=== PATIENT | male | born 1970 | race Caucasian/White ===

== ENCOUNTER → 2018-08-05 | Outpatient (CLI) | payer MEDICAID ==
--- NOTE | 2018-08-05 13:19 | Diagnostic Imaging Report ---
PROCEDURE: MRI right joint upper extremity without contrast. TECHNIQUE: Multiplanar, multisequence [id number] MRI of the right upper extremity was accomplished. INDICATION: Shoulder pain. COMPARISON: There are no prior studies available for comparison. FINDINGS: On the T2 fat-saturated coronal series, there appears to be only a few strands of the supraspinatus muscle still present. I do suspect that the supraspinatus muscle has been nearly completely if not completely torn and that it has been retracted. There is hypertrophy of the acromioclavicular joint, and there is some fluid within the AC joint. This does suggest that there is inflammation of the joint. There is a tear involving the central portion of the labrum. The biceps tendon and subscapularis tendon are intact. There is no evidence for a joint effusion. There is no abnormal signal arising from the osseous structures to suggest bone edema or a fracture. IMPRESSION: 1. The poor visualization of the supraspinatus muscle would indicate that the supraspinatus muscle is nearly completely if not completely torn and that it has been retracted. 2. There is hypertrophy of the acromioclavicular joint, and the presence of fluid within the joint does suggest that there is inflammation. 3. The labrum is torn centrally. 4. There is no acute bony abnormality identified. Dictated by: Dictated on workstation # [id number]
== END ==
LOC: RAD 11:53
PROVIDERS: ATTEND Nurse Practitioner
DX: S43.491A Other sprain of right shoulder joint, initial encounter (principal); M75.111 Incomplete rotator cuff tear or rupture of right shoulder, not specified as traumatic
CPT/HCPCS: 73221

== ENCOUNTER 2018-08-26 09:29 | Outpatient (CLI) | payer MEDICAID ==
[~2018-08-26] VITALS: Ht 177.8 cm; Wt 111.1 kg
[2018-08-26] MEDS ORDERED: MELO15TA39 PO (11:42)
[2018-08-26] MEDS ORDERED: OXYC-464 PO (11:42)
[2018-08-26] MEDS ORDERED: BACL20TA PO (11:42)
== END 2018-08-26 12:00 | disposition home or self-care (01) ==
LOC: PREOP 09:29
PROVIDERS: ATTEND Orthopaedic Surgery
DX: Z01.818 Encounter for other preprocedural examination (principal)

== ENCOUNTER 2018-09-01 09:29 | Day surgery (SDC) | payer MEDICAID ==
[~2018-09-01] VITALS: Ht 177.8 cm; Wt 111.1 kg
[~2018-09-01 09:29] MED LIST: BACL20TA PO; MELO15TA39 PO; OXYC-464 PO
[2018-09-01] MEDS: LACTATED RINGERS 1,000 ML IV PRN ×2 (10:05→11:47)
--- NOTE | 2018-09-01 10:13 | Progress Note-Pre Operative ---
Pre-Operative Progress Note H&P Reviewed The H&P was reviewed, patient examined and no changes noted. Date Seen by Provider: Sep 01, 2018 Time Seen by Provider: : Date H&P Reviewed: Sep 01, 2018 Time H&P Reviewed: :13 Pre-Operative Diagnosis: right rotator cuff and SLAP tear SIVAN JOSEPH MD Sep 01, 2018 10:13
[2018-09-01] MEDS ORDERED: CATHETER FLUSH 10 ML SYR IV PRN (10:15)
[2018-09-01] MEDS ORDERED: ROCURONIUM 10 MG/ML 5 ML SYRINGE IV ONE (10:15)
[2018-09-01] MEDS ORDERED: LIDOCAINE PF 2% 5 ML (XYLOCAINE) VIAL ONE (10:15)
[2018-09-01] MEDS ORDERED: ONDANSETRON 4 MG/2 ML (SDV) Z0FRAN ONE (10:15)
[2018-09-01] MEDS ORDERED: DEXAMETHASONE 10 MG/ML (DECADRON) 1 ML VIAL ONE (10:15)
[2018-09-01] MEDS ORDERED: SEVOFLURANE (ULTANE) 15 ML INHAL SOLN ONE ×2 (10:15→12:25)
[2018-09-01] MEDS ORDERED: proPOfol 200 MG/20 ML (DIPRIVAN) VIAL IV ONE (10:15)
[2018-09-01] MEDS ORDERED: CLINDAMYCIN 600 MG/50 ML IVPB 50 ML IV ONE (10:15)
--- NOTE | 2018-09-01 10:15 | Progress Note-Post Operative ---
Post-Operative Progess Note Surgeon (s)/Workers' Compensation Mediator (s) Surgeon SIVAN JOSEPH MD Workers' Compensation Mediator: Jeanmarie Abbasi Pre-Operative Diagnosis right rotator cuff and SLAP tear Post-Operative Diagnosis right rotator cuff, labral and SLAP tears Procedure & Operative Findings Date of Procedure 09/01/18 Procedure Performed/Findings right shoulder arthroscopic biceps tenotomy, labral debridement and acromioplasty Anesthesia Type GETA Estimated Blood Loss Estimated blood loss (mL): minimal Specimens/Packing Specimens Removed none Packing: none SIVAN JOSEPH MD Sep 01, 2018 10:15
[2018-09-01] MEDS ORDERED: MIDAZOLAM 2 MG/2 ML (VERSED) VIAL ONE (10:17)
[2018-09-01] MEDS ORDERED: fentaNYL INJECTION 100 MCG/2 ML AMP ONE ×2 (10:17→11:36)
[2018-09-01] MEDS ORDERED: BUPIVACAINE 0.25% 30 ML (SENSORCAINE) VIAL ONE (10:24)
[2018-09-01] MEDS ORDERED: morphine PF (DURAMORPH) 10 MG/10 ML AMP ONE (10:24)
[2018-09-01 10:25] VITALS: BP 126/86
[2018-09-01] MEDS ORDERED: oxyCODONE/APAP 5/325MG (PERCOCET 5) TABLET PO PRN (10:30)
[2018-09-01] MEDS ORDERED: RT-ALBUTEROL SULF 2.5 MG/3 ML PRE-MIX VIAL ONE (10:35)
[2018-09-01] MEDS ORDERED: RT-ALBUTEROL SULF 2.5 MG/3 ML PRE-MIX VIAL INH ONE (10:45)
[2018-09-01] MEDS ORDERED: ROPIVACAINE 5MG/ML 30ML VIAL ONE ×2 (11:03)
[2018-09-01] MEDS ORDERED: NEOSTIGMINE 1 MG/ML 5 ML SYRINGE ONE (11:45)
[2018-09-01] MEDS ORDERED: GLYCOPYRROLATE 0.2 MG/ML (ROBINUL) 2 ML VIAL ONE (11:45)
[2018-09-01] MEDS ORDERED: RT-ALBUTEROL HFA (VENTOLIN) PER PUFF IH ONE (11:55)
--- OUTSIDE RECORDS SUMMARY | 2018-09-01 11:56 | XMS REPORT ---
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 Active 149965718463 Problem Other chronic pain G89.29 Active 22371013 Problem Lumbago with sciatica, right side M54.41 Active 047783447 ALLERGIES No Information ENCOUNTERS Encounter Location Date Diagnosis [place] [address] [address] Jun, [facility] [address] [address] Jun, [facility] [address] [address] Jun, Lumbago with sciatica, right side M54.41 [place] [address] [address] Jun, [place] [address] [address] Jun, History of spinal cord injury Z87.828 ; History of degenerative disc disease Z87.39 and Lumbago with sciatica, right side M54.41 [facility] [address] [address] May, [place] [address] [address] May, [facility] [address] [address] May, Lumbago with sciatica, right side M54.41 ; Annual physical exam Z00.00 ; Right leg weakness R29.898 ; History of degenerative disc disease Z87.39 ; Dental caries K02.9 ; Encounter for immunization Z23 ; Non-allergic rhinitis J31.0 ; Other chronic pain G89.29 and History of spinal cord injury Z87.828 [place] [address], [place] [address] 07 May, 2018 Pain in right shoulder M25.511 ; Pain in left shoulder M25.512 ; Other chronic pain G89.29 and Lumbago with sciatica, right side M54.41 [place] [address] [place] [id number] [place] [address] May, [place] [address] [place] [id number] [place] [address] 12 Dec, 2017 Lumbago with sciatica, right side M54.41 and Other chronic pain G89.29 IMMUNIZATIONS No Known Immunizations SOCIAL HISTORY Never Assessed REASON FOR VISIT new orders PLAN OF CARE VITAL SIGNS MEDICATIONS Medication Instructions Dosage Frequency Start Date End Date Duration Status Percocet 7.5-325 MG Orally every 6 hrs 1 tablet as needed 6h Jun, 28 days Active RESULTS No Results PROCEDURES No Known procedures INSTRUCTIONS MEDICATIONS ADMINISTERED No Known Medications MEDICAL (GENERAL) HISTORY Type Description Date Medical History back pain, d/t 30 ft fall in 1999 Medical History shoulder pain both Surgical History lumbar fusion 10/1999 Surgical History orthopedic surgery, right elbow and left foot 10/1999
--- OUTSIDE RECORDS SUMMARY | 2018-09-01 11:56 | XMS REPORT ---
Author Author SIVAN RANDALL Organization [facility] Address [address] [place] [address] Care Team Providers Care Foreign Banknote Teller Trader Name Role Phone SIVAN RANDALL Unavailable PROBLEMS Type Condition ICD9-CM Code YAT77-BL Code Onset Dates Condition Status SNOMED Code Problem Non-allergic rhinitis J31.0 Active 272436807130 Problem Other chronic pain G89.29 Active 51522647 Problem Lumbago with sciatica, right side M54.41 Active 813381266 ALLERGIES No Information ENCOUNTERS Encounter Location Date Diagnosis [place] [address] [address] Jun, [facility] [address] [address] Jun, [facility] [address] [address] Jun, Lumbago with sciatica, right side M54.41 [place] [address] [address] Jun, [place] [address] [address] Jun, History of spinal cord injury Z87.828 ; History of degenerative disc disease Z87.39 and Lumbago with sciatica, right side M54.41 [facility] [address] [address] May, [place] [address] [address] May, [facility] [address] [address] May, Lumbago with sciatica, right side M54.41 ; Annual physical exam Z00.00 ; Right leg weakness R29.898 ; History of degenerative disc disease Z87.39 ; Dental caries K02.9 ; Encounter for immunization Z23 ; Non-allergic rhinitis J31.0 ; Other chronic pain G89.29 and History of spinal cord injury Z87.828 [facility] [address], [place] [address] 07 May, 2018 Pain in right shoulder M25.511 ; Pain in left shoulder M25.512 ; Other chronic pain G89.29 and Lumbago with sciatica, right side M54.41 [place] [address] [place] [id number] [place] [address] May, [place] [address] [place] [address] 12 Dec, 2017 Lumbago with sciatica, right side M54.41 and Other chronic pain G89.29 IMMUNIZATIONS No Known Immunizations SOCIAL HISTORY Never Assessed REASON FOR VISIT Controlled refill PLAN OF CARE VITAL SIGNS MEDICATIONS Unknown Medications RESULTS No Results PROCEDURES No Known procedures INSTRUCTIONS MEDICATIONS ADMINISTERED No Known Medications MEDICAL (GENERAL) HISTORY Type Description Date Medical History back pain, d/t 30 ft fall in 1999 Medical History shoulder pain both Surgical History lumbar fusion 10/1999 Surgical History orthopedic surgery, right elbow and left foot 10/1999
--- OUTSIDE RECORDS SUMMARY | 2018-09-01 11:56 | XMS REPORT ---
Author Author SIVAN RANDALL Organization [facility] Address [address] [place] [address] Care Team Providers Care Data Base Design Analyst Name Role Phone SIVAN RANDALL Unavailable PROBLEMS Type Condition ICD9-CM Code EQI77-ZC Code Onset Dates Condition Status SNOMED Code Problem Non-allergic rhinitis J31.0 Active 687575378099 Problem Other chronic pain G89.29 Active 02381321 Problem Lumbago with sciatica, right side M54.41 Active 598992065 ALLERGIES No Information ENCOUNTERS Encounter Location Date Diagnosis [facility] [address] [address] 04 Jun, 2018 History of spinal cord injury Z87.828 ; History of degenerative disc disease Z87.39 and Lumbago with sciatica, right side M54.41 [facility] [address] [address] May, [facility] [address] [address] May, [facility] [address] [place] [id number] [place] [address] 27 May, 2018 Lumbago with sciatica, right side M54.41 ; Annual physical exam Z00.00 ; Right leg weakness R29.898 ; History of degenerative disc disease Z87.39 ; Dental caries K02.9 ; Encounter for immunization Z23 ; Non-allergic rhinitis J31.0 ; Other chronic pain G89.29 and History of spinal cord injury Z87.828 [facility] [address] [place] [id number] [place] [address] 07 May, 2018 Pain in right shoulder M25.511 ; Pain in left shoulder M25.512 ; Other chronic pain G89.29 and Lumbago with sciatica, right side M54.41 [facility] [address] [facility] [id number] [place] [address] May, [facility] [address] [facility] [id number] [place] [address] Dec, Lumbago with sciatica, right side M54.41 and Other chronic pain G89.29 IMMUNIZATIONS No Known Immunizations SOCIAL HISTORY Never Assessed REASON FOR VISIT Prior Authorization Request PLAN OF CARE VITAL SIGNS MEDICATIONS Unknown [...]
--- OUTSIDE RECORDS SUMMARY | 2018-09-01 11:56 | XMS REPORT ---
Author Author SIVAN RANDALL Organization [facility] Address [address] [place] [address] Care Team Providers Care Security Installation Technician Name Role Phone SIVAN RANDALL Unavailable PROBLEMS Type Condition ICD9-CM Code ETE90-IW Code Onset Dates Condition Status SNOMED Code Problem Non-allergic rhinitis J31.0 Active 708836229130 Problem Other chronic pain G89.29 Active 84476987 Problem Lumbago with sciatica, right side M54.41 Active 480015487 ALLERGIES No Information ENCOUNTERS Encounter Location Date Diagnosis [place] [address] [address] Jun, [facility] [address] [address] Jun, [facility] [address] [address] Jun, Lumbago with sciatica, right side M54.41 ; Pain in right shoulder M25.511 ; History of spinal cord injury Z87.828 ; Pain in left shoulder M25.512 ; Annual physical exam Z00.00 ; Other chronic pain G89.29 ; Right leg weakness R29.898 ; History of degenerative disc disease Z87.39 and Dental caries K02.9 [facility] [address] [place] [id number] [place] [address] Jun, [facility] [address] [address] Jun, Lumbago with sciatica, right side M54.41 [facility] [address] [place] [id number] [place] [address]- [address] Jun, [facility] [address] [place] [address] Jun, History of spinal cord injury Z87.828 ; History of degenerative disc disease Z87.39 and Lumbago with sciatica, right side M54.41 [place] [address] [place] [address] May, [place] [address] [place] [id number] [place] [address]- [address] May, [place] [address] [place] [id number] [place] [address] May, Lumbago with sciatica, right side M54.41 ; Annual physical exam Z00.00 ; Right leg weakness R29.898 ; History of degenerative disc disease Z87.39 ; Dental caries K02.9 ; Encounter for immunization Z23 ; Non-allergic rhinitis J31.0 ; Other chronic pain G89.29 and History of spinal cord injury Z87.828 [place] [address] [place] [id number] [place] [address] May, Pain in right shoulder M25.511 ; Pain in left shoulder M25.512 ; Other chronic pain G89.29 and Lumbago with sciatica, right side M54.41 [place] [address] [place] [address] May, [place] [address] [place] [address]- [address] Dec, Lumbago with sciatica, right side M54.41 and Other chronic pain G89.29 IMMUNIZATIONS No Known Immunizations SOCIAL HISTORY Never Assessed REASON FOR VISIT Refill request PLAN OF CARE VITAL SIGNS MEDICATIONS Unknown [...]
--- OUTSIDE RECORDS SUMMARY | 2018-09-01 11:56 | XMS REPORT ---
Author Author SIVAN RANDALL Organization [facility] Address [address] [place] [address] Care Team Providers Care Metal Annealer Name Role Phone SIVAN RANADLL Unavailable PROBLEMS Type Condition ICD9-CM Code CTG11-GU Code Onset Dates Condition Status SNOMED Code Problem Non-allergic rhinitis J31.0 Active 395797231755 Problem Other chronic pain G89.29 Active 14846372 Problem Lumbago with sciatica, right side M54.41 Active 551706270 ALLERGIES No Information ENCOUNTERS Encounter Location Date Diagnosis [place] [address] [address] Jun, [place] [address] [address] Jun, Lumbago with sciatica, right side M54.41 ; Pain in right shoulder M25.511 ; History of spinal cord injury Z87.828 ; Pain in left shoulder M25.512 ; Annual physical exam Z00.00 ; Other chronic pain G89.29 ; Right leg weakness R29.898 ; History of degenerative disc disease Z87.39 and Dental caries K02.9 [place] [address] [place] [id number] [place] [address] Jun, [place] [address] [place] [id number] [place] [address]- [address] Jun, Lumbago with sciatica, right side M54.41 [place] [address] [place] [id number] [place] [address] Jun, [place] [address] [place] [id number] [place] [address]- [address] Jun, History of spinal cord injury Z87.828 ; History of degenerative disc disease Z87.39 and Lumbago with sciatica, right side M54.41 [place] [address], [place] [address] May, [place] [address] [place] [id number] [place] [address]- [address] May, [place] [address] [place] [id number] [place] [address]- [address] May, Lumbago with sciatica, right side M54.41 ; Annual physical exam Z00.00 ; Right leg weakness R29.898 ; History of degenerative disc disease Z87.39 ; Dental caries K02.9 ; Encounter for immunization Z23 ; Non-allergic rhinitis J31.0 ; Other chronic pain G89.29 and History of spinal cord injury Z87.828 [place] [address] [place] [id number] [place] [address] 07 May, 2018 Pain in right shoulder M25.511 ; Pain in left shoulder M25.512 ; Other chronic pain G89.29 and Lumbago with sciatica, right side M54.41 [place] [address] [place] [address]- [address] May, [place] [address] [place] [address]- [address] Dec, Lumbago with sciatica, right side M54.41 and Other chronic pain G89.29 IMMUNIZATIONS No Known Immunizations SOCIAL HISTORY Never Assessed REASON FOR VISIT Xray (walk-in) MHill RT(R) and ABookless RT(R) PLAN OF CARE Activity Details Pending Test Xray : Shoulder, Left 2 view (IN HOUSE) Pending Test Xray : Shoulder, Right 2 view (IN HOUSE) Pending Test Xray : Spine, Thoracic 2 views (IN HOUSE) Pending Test Xray : Spine, Lumbar 2-3 views (IN HOUSE) Pending Test Xray : Spine, Cervical (IN HOUSE) VITAL SIGNS MEDICATIONS Unknown Medications RESULTS No Results PROCEDURES Procedure Date Ordered Result Body Site X-RAY EXAM OF SHOULDER Jul 06, 2018 X-RAY EXAM OF NECK SPINE Jul 06, 2018 X-RAY EXAM OF LOWER SPINE Jul 06, 2018 X-RAY EXAM OF THORACIC SPINE Jul 06, 2018 INSTRUCTIONS MEDICATIONS ADMINISTERED No Known Medications MEDICAL (GENERAL) HISTORY Type Description Date Medical History back pain, d/t 30 ft fall in 1999 Medical History shoulder pain both Surgical History lumbar fusion 10/1999 Surgical History orthopedic surgery, right elbow and left foot 10/1999
--- OUTSIDE RECORDS SUMMARY | 2018-09-01 11:57 | XMS REPORT ---
Author Author SIVAN RANDALL Organization [facility] Address [address] [place] [address] Care Team Providers Care Documentation Liaison Name Role Phone ISVAN RANDALL Unavailable PROBLEMS Type Condition ICD9-CM Code AIQ46-NU Code Onset Dates Condition Status SNOMED Code Problem Other chronic pain G89.29 Active 48454927 Problem Lumbago with sciatica, right side M54.41 Active 134839307 ALLERGIES Substance Reaction Event Type Date Status Penicillin G Sodium unknown Drug Allergy Dec, Active Codeine Sulfate aggitation Drug Allergy Dec, Active ENCOUNTERS Encounter Location Date Diagnosis [facility] [address] [facility] [id number] [address] Dec, Lumbago with sciatica, right side M54.41 and Other chronic pain G89.29 IMMUNIZATIONS No Known Immunizations SOCIAL HISTORY Never Assessed REASON FOR VISIT Establish Care, recently moved from [place], no PCP-----Joaquin, requesting SSI PLAN OF CARE Activity Details Follow Up prn Reason:medical records VITAL SIGNS Height 70 in 2017-12-29 Weight 225 lbs 2017-12-29 Temperature 98.1 degrees Fahrenheit 2017-12-29 Heart Rate 90 bpm 2017-12-29 Respiratory Rate 20 2017-12-29 BMI 32.28 kg/m2 2017-12-29 Blood pressure systolic 132 mmHg 2017-12-29 Blood pressure diastolic 70 mmHg 2017-12-29 MEDICATIONS Medication Instructions Dosage Frequency Start Date End Date Duration Status Diclofenac Sodium 75 MG Orally Twice a day 1 tablet with food or milk 12h 14 days Active Cyclobenzaprine HCl 10 mg Orally bid prn muscle spasm 1 tablet as needed Dec, Jan, 28 days Active RESULTS No Results PROCEDURES No Known procedures INSTRUCTIONS MEDICATIONS ADMINISTERED No Known Medications MEDICAL (GENERAL) HISTORY Type Description Date Medical History back pain, d/t 30 ft fall in 1999 Surgical History lumbar fusion 10/1999 Surgical History orthopedic surgery, right elbow and left foot 10/1999
--- OUTSIDE RECORDS SUMMARY | 2018-09-01 11:57 | XMS REPORT ---
Author Author SIVAN RANDALL Organization [facility] Address [address] [place] [address] Care Team Providers Care Publications Distribution Clerk Name Role Phone SIVAN RANDALL Unavailable PROBLEMS Type Condition ICD9-CM Code JZA54-RS Code Onset Dates Condition Status SNOMED Code Problem Non-allergic rhinitis J31.0 Active 963696481796 Problem Other chronic pain G89.29 Active 44979576 Problem Lumbago with sciatica, right side M54.41 Active 321875956 ALLERGIES No Information ENCOUNTERS Encounter Location Date Diagnosis [facility] [address] [address] 04 Jun, 2018 History of spinal cord injury Z87.828 ; History of degenerative disc disease Z87.39 and Lumbago with sciatica, right side M54.41 [facility] [address] [address] May, [facility] [address] [address] May, [facility] [address] [place] [id number] [place] [address] 27 May, 2018 Lumbago with sciatica, right side M54.41 ; Annual physical exam Z00.00 ; Right leg weakness R29.898 ; History of degenerative disc disease Z87.39 ; Dental caries K02.9 ; Encounter for immunization Z23 ; Non-allergic rhinitis J31.0 ; Other chronic pain G89.29 and History of spinal cord injury Z87.828 [facility] [address] [place] [id number] [place] [address] 07 May, 2018 Pain in right shoulder M25.511 ; Pain in left shoulder M25.512 ; Other chronic pain G89.29 and Lumbago with sciatica, right side M54.41 [facility] [address] [facility] [id number] [place] [address] May, [facility] [address] [facility] [id number] [place] [address] Dec, Lumbago with sciatica, right side M54.41 and Other chronic pain G89.29 IMMUNIZATIONS No Known Immunizations SOCIAL HISTORY Never Assessed REASON FOR VISIT Requests return call PLAN OF CARE VITAL SIGNS MEDICATIONS Unknown [...]
--- OUTSIDE RECORDS SUMMARY | 2018-09-01 11:57 | XMS REPORT ---
Author Author SIVAN RANDALL Organization [facility] Address [address] [place] [address] Care Team Providers Care Meat Team Lead Name Role Phone SIVAN RANDALL Unavailable PROBLEMS Type Condition ICD9-CM Code XMM99-AL Code Onset Dates Condition Status SNOMED Code Problem Non-allergic rhinitis J31.0 Active 134173360280 Problem Other chronic pain G89.29 Active 26991931 Problem Lumbago with sciatica, right side M54.41 Active 007076064 ALLERGIES No Information ENCOUNTERS Encounter Location Date Diagnosis [facility] [address] [address] 04 Jun, 2018 History of spinal cord injury Z87.828 ; History of degenerative disc disease Z87.39 and Lumbago with sciatica, right side M54.41 [facility] [address] [address] May, [facility] [address] [address] May, [facility] [address] [place] [id number] [place] [address] 27 May, 2018 Lumbago with sciatica, right side M54.41 ; Annual physical exam Z00.00 ; Right leg weakness R29.898 ; History of degenerative disc disease Z87.39 ; Dental caries K02.9 ; Encounter for immunization Z23 ; Non-allergic rhinitis J31.0 ; Other chronic pain G89.29 and History of spinal cord injury Z87.828 [facility] [address] [place] [id number] [place] [address] 07 May, 2018 Pain in right shoulder M25.511 ; Pain in left shoulder M25.512 ; Other chronic pain G89.29 and Lumbago with sciatica, right side M54.41 [facility] [address] [facility] [id number] [place] [address] May, [facility] [address] [facility] [id number] [place] [address] Dec, Lumbago with sciatica, right side M54.41 and Other chronic pain G89.29 IMMUNIZATIONS No Known Immunizations SOCIAL HISTORY Never Assessed REASON FOR VISIT new x-ray orders PLAN OF CARE VITAL SIGNS MEDICATIONS Unknown [...]
--- OUTSIDE RECORDS SUMMARY | 2018-09-01 11:57 | XMS REPORT ---
Author Author SIVAN RANDALL Organization [facility] Address [address] [place] [address] Care Team Providers Care Airport Skilled Maintenance Supervisor Name Role Phone SIVAN RANDALL Unavailable PROBLEMS Type Condition ICD9-CM Code PEM24-LQ Code Onset Dates Condition Status SNOMED Code Problem Other chronic pain G89.29 Active 57569175 Problem Lumbago with sciatica, right side M54.41 Active 060797806 ALLERGIES No Information ENCOUNTERS Encounter Location Date Diagnosis [facility] [address], [place] [address] May, [facility] [address], [place] [address] May, [facility] [address], [place] [address] Dec, Lumbago with sciatica, right side M54.41 [...]
--- OUTSIDE RECORDS SUMMARY | 2018-09-01 11:57 | XMS REPORT ---
Author Author SIVAN RANDALL Organization [facility] Address [address] [place] [address] Care Team Providers Care Firearms Expert Name Role Phone SIVAN RANDALL Unavailable PROBLEMS Type Condition ICD9-CM Code [id number] Code Onset Dates Condition Status SNOMED Code Problem Other chronic pain G89.29 Active 07673001 Problem Lumbago with sciatica, right side M54.41 Active 939425840 ALLERGIES Substance Reaction Event Type Date Status Penicillin G Sodium unknown Drug Allergy May, Active Codeine Sulfate aggitation Drug Allergy May, Active ENCOUNTERS Encounter Location Date Diagnosis [facility] [id number] [place] [address] May, [facility] [id number] [place] [address] May, Pain in right shoulder M25.511 ; Pain in left shoulder M25.512 ; Other chronic pain G89.29 and Lumbago with sciatica, right side M54.41 [facility] [id number] [place] [phone] May, [facility] [id number] [place] [phone] Dec, Lumbago with sciatica, right side M54.41 and Other chronic pain G89.29 IMMUNIZATIONS No Known Immunizations SOCIAL HISTORY Never Assessed REASON FOR VISIT pain, shoulder-GENNA loydA, pt complaining of pain in both of his shoulders, pt states that he fallin a couple of times since he was here last PLAN OF CARE Activity Details Follow Up prn Reason: Future/Pending Procedure JOINT INJECTION-LARGE JOINT VITAL SIGNS Height 70 in 2018-05-26 Weight 239.3 lbs 2018-05-26 Temperature 97.9 degrees Fahrenheit 2018-05-26 Heart Rate 94 bpm 2018-05-26 Respiratory Rate 20 2018-05-26 Oximetry on room air:96 % 2018-05-26 BMI 34.33 kg/m2 2018-05-26 Blood pressure systolic 146 mmHg 2018-05-26 Blood pressure diastolic 90 mmHg 2018-05-26 MEDICATIONS Medication Instructions Dosage Frequency Start Date End Date Duration Status Baclofen 20 mg Orally every 8 hrs, prn muscle spasm 1 tablet with food or milk May, Aug, 30 day(s) Active Meloxicam 15 mg Orally Once a day 1 tablet 24h May, Aug, 30 day(s) Active RESULTS No Results PROCEDURES Procedure Date Ordered Result Body Site DRAIN/INJECT, JOINT/BURSA May 26, 2018 INSTRUCTIONS MEDICATIONS ADMINISTERED No Known Medications MEDICAL (GENERAL) HISTORY Type Description Date Medical History back pain, d/t 30 ft fall in 1999 Medical History shoulder pain both Surgical History lumbar fusion 10/1999 Surgical History orthopedic surgery, right elbow and left foot 10/1999
--- OUTSIDE RECORDS SUMMARY | 2018-09-01 11:57 | XMS REPORT ---
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 224627174432 Problem Other chronic pain G89.29 Active 16928001 Problem Lumbago with sciatica, right side M54.41 Active 327533396 ALLERGIES Substance Reaction Event Type Date Status Penicillin G Sodium unknown Drug Allergy May, Active Codeine Sulfate aggitation Drug Allergy May, Active ENCOUNTERS Encounter Location Date Diagnosis [facility] [id number] [place] [phone] May, [facility] [address] [address] May, [facility] [address] [address] May, Lumbago with sciatica, right side M54.41 ; Annual physical exam Z00.00 ; Right leg weakness R29.898 ; History of degenerative disc disease Z87.39 ; Dental caries K02.9 ; Encounter for immunization Z23 ; Non-allergic rhinitis J31.0 ; Other chronic pain G89.29 and History of spinal cord injury Z87.828 [facility] [address] [phone] May, 2018 Pain in right shoulder M25.511 ; Pain in left shoulder M25.512 ; Other chronic pain G89.29 and Lumbago with sciatica, right side M54.41 [facility] [address] [address] May, [facility] [address] [facility] [id number] [place] [address] Dec, Lumbago with sciatica, right side M54.41 and Other chronic pain G89.29 IMMUNIZATIONS Vaccine Route Administration Date Status FLULAVAL QUAD 0.5ML (6 MO & UP) 2018 IM Intramuscular Jun 15, 2018 Administered PPSV23 (PNEUMOVAX) IM Intramuscular Jun 15, 2018 Administered SOCIAL HISTORY Never Assessed REASON FOR VISIT Annual physical (male), physical for disability. 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 PLAN OF CARE Activity Details Follow Up 6 Months Reason: Pending Test LIPID PANEL Pending Test CMP Pending Test CBC Pending Test PDM - 09 PANEL (PROFILE 1) Pending Test MRI : Lumbar w/o contrast VITAL SIGNS MEDICATIONS Medication Instructions Dosage Frequency Start Date End Date Duration Status Ipratropium Bosworth 0.06 % Nasally Three times a day 2 sprays in each nostril 8h May, 30 days Active Percocet 7.5-325 MG Orally every 6 hrs 1 tablet as needed 6h May, 28 days Active Meloxicam 15 mg Orally Once a day 1 tablet 24h May, Aug, 30 day(s) Active Baclofen 20 mg Orally every 8 hrs, prn muscle spasm 1 tablet with food or milk May, Aug, 30 day(s) Active RESULTS No Results PROCEDURES Procedure Date Ordered Result Body Site SPECIMEN HANDLING Jun 15, 2018 SINGLE IMMUNIZATION ADMIN Jun 15, 2018 FLULAVAL QUAD 0.5ML (6 MO & UP) 2018 Jun 15, 2018 IMMUNIZATION ADMIN, EACH ADD (please include units) Jun 15, 2018 LAB NOT BILLED BY [facility] Jun 15, 2018 VENIPUNCT, ROUTINE* Jun 15, 2018 ADMN PNEUMCOC VAC NO FEE DAY Jun 15, 2018 PPSV23 (PNEUMOVAX) Jun 15, 2018 INSTRUCTIONS MEDICATIONS ADMINISTERED No Known Medications MEDICAL (GENERAL) HISTORY Type Description Date Medical History back pain, d/t 30 ft fall in 1999 Medical History shoulder pain both Surgical History lumbar fusion 10/1999 Surgical History orthopedic surgery, right elbow and left foot 10/1999
[2018-09-01] MEDS ORDERED: ONDANSETRON 4 MG/2 ML (SDV) Z0FRAN IVP PRN (12:15)
[2018-09-01] MEDS ORDERED: morphine INJ 10 MG/ML 1ML (SYR OR VIAL) IVP ONE (12:15)
[2018-09-01 12:50] VITALS: BP 148/97
[2018-09-01 13:20] VITALS: BP 142/85
[2018-09-01 13:50] VITALS: BP 131/74
--- NOTE | 2018-09-01 14:07 | OPERATIVE REPORT ---
DATE OF SERVICE: 09/01/2018 PREOPERATIVE DIAGNOSIS: 1. Right shoulder rotator cuff tear. 2. Right shoulder SLAP tear. POSTOPERATIVE DIAGNOSES: 1. Irreparable right shoulder rotator cuff tear. 2. Right shoulder SLAP tear. 3. Right shoulder labral tear. PROCEDURES: 1. Right shoulder arthroscopic biceps tenotomy. 2. Right shoulder arthroscopic labral debridement. 3. Right shoulder arthroscopic acromioplasty. SURGEON: Benedicto Joseph MD. [place] ATTENDANT: Jeanmarie Abbasi, who assisted throughout the procedure and closed the incisions. ANESTHESIA: General endotracheal by Leann Morton CRNA. ESTIMATED BLOOD LOSS: Minimal. DRAINS: None. COMPLICATIONS: None. POSTOPERATIVE PLAN: Sling wear for comfort with progressive range of motion as symptoms allow. The patient was transferred to the recovery room awake and in stable condition. STATEMENT OF MEDICAL NECESSITY: The patient is a 47-year-old right hand dominant gentleman with progressively worsening of the right shoulder pain and weakness. An MRI revealed a retracted full thickness 3-tendon rotator cuff tear with atrophy of the muscle noted. The patient was counseled that this may be an irreparable tear. In addition, he was found to have a SLAP tear on MRI. Due to functional impairment and failure to improve with the conservative measures, the patient elected to proceed with surgical intervention. Examination under anesthesia revealed forward elevation of 170 degrees, external rotation of 90 degrees and internal rotation of 80 degrees. The arthroscopic findings demonstrated a retracted supraspinatus, infraspinatus and subscapularis tear with retraction to the glenoid with atrophy noted. There was a type 2 SLAP tear with degenerative fraying in the anterior labrum from the 2 to 4 o'clock position with no detachment of the capsular labral complex. Otherwise, there was moderate bursitis and sloping of the anterolateral acromion. DESCRIPTION OF PROCEDURE: After the risks and benefits of the procedure were discussed and questions were answered, informed consent was signed and placed on the chart. The operative site was confirmed and the operative limb initialed by the surgeon. The patient was then transferred to the operating room. After adequate levels of general endotracheal anesthetic were obtained, a timeout was called confirming the operative site. Examination under anesthesia was performed with the above findings noted. The right shoulder and upper extremity were prepped and draped in the usual sterile fashion. The shoulder joint was injected with a 20 mL fluid and a standard posterior portal was placed under direct visualization. The anterior portal was created in the interval between the glenoid, humeral head and biceps. The biceps anchor was released and the stump was debrided with a shaver. The anterior labral flap was debrided with shaver back to a stable edge. The scope was redirected into the subacromial space and a lateral portal was created. A bursectomy was performed and the acromion was planed to a flat type 1 acromion. Attempts at mobilizing the rotator cuff were unsuccessful. This was due to the atrophy of the tendon and muscle unit. Therefore, it was decided that this was an irreparable tear. Subacromial space was copiously irrigated. The portal sites were closed with 4-0 nylon in a simple interrupted fashion. Shoulder was injected with Duramorph. The portal sites were infiltrated with plain Marcaine. A soft dressing and sling were applied. The patient was transported to the recovery room awake and stable condition. Job ID: [id number] DocumentID: [id number] Dictated Date: 09/01/2018 11:56:02 In Store Representative Date: 09/01/2018 14:06:12 Dictated By: BENEDICTO JOSEPH MD
[2018-09-01 14:30] VITALS: BP 131/74
--- NOTE | 2018-09-01 14:56 | Anesthesia-General Post-Op ---
General Patient Condition Mental Status/LOC: Same as Preop Cardiovascular: Satisfactory Nausea/Vomiting: Absent Respiratory: Satisfactory Pain: Controlled Complications: Absent Post Op Complications Complications None Follow Up Care/Instructions Patient Instructions None needed. Anesthesia/Patient Condition Patient Condition Patient was seen after the procedure and he was doing well, no complaints, stable vital signs, no apparent adverse anesthesia problems. He was still having pain in his shoulder, although it was tolerable. He also had full sensation of his upper extremity, so it appears the interscalene block was not fully effective, despite using the ultrasound and nerve stimulator. Patient is tolerating the pain well, however. He states he has a high pain tolerance and will do well. COLUMBA SCHERER DO Sep 01, 2018 14:56
== END 2018-09-01 14:30 | disposition home or self-care (01) ==
LOC: SDC 09:29
PROVIDERS: ATTEND Orthopaedic Surgery
DX: M75.101 Unspecified rotator cuff tear or rupture of right shoulder, not specified as traumatic (principal); S43.431A Superior glenoid labrum lesion of right shoulder, initial encounter; Z11.2 Encounter for screening for other bacterial diseases; E70.0 Classical phenylketonuria; F17.210 Nicotine dependence, cigarettes, uncomplicated; Z88.0 Allergy status to penicillin; Z88.5 Allergy status to narcotic agent; E78.5 Hyperlipidemia, unspecified; J45.909 Unspecified asthma, uncomplicated; E66.9 Obesity, unspecified; Z79.899 Other long term (current) drug therapy; Z68.35 Body mass index [BMI] 35.0-35.9, adult
CPT/HCPCS: 87081; 94640

== ENCOUNTER 2019-02-28 19:57 | Emergency (ER) | payer MEDICAID ==
[~2019-02-28] VITALS: Ht 177.8 cm; Wt 120.2 kg
--- NOTE | 2019-02-28 20:21 | NUR ---
pt alert gcs 15. no acute sighns of dyspnea noted.
--- NOTE | 2019-02-28 21:10 | NUR ---
i am taking this pt in fast track.
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
--- NOTE | 2019-02-28 21:15 | NUR ---
pt remains alert gcs 15. pt uses cane for ambulation. no acute sighns of dyspnea noted. neg chest or abd injury noted. lungs equal cta bilaterally. abd w/o pain with palpation. cleaned head wound.
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
[2019-02-28] MEDS ORDERED: ACETAMINOPHEN 500 MG TAB (TYLENOL) PO ONE (22:15)
[2019-02-28 22:27] VITALS: BP 143/80
--- NOTE | 2019-02-28 22:27 | NUR ---
d/c instructions to pt. told to read all papers. no scripts given. pt left ambulatory with adult female. pt knows f/u. i went over the handtyped by information on the chart. pt had no iv.
== END 2019-02-28 22:27 | disposition home or self-care (01) ==
LOC: EDUNIT# 19:57 → ER 19:58
DX: M54.5 Low back pain (principal); R51 Headache; J45.909 Unspecified asthma, uncomplicated; F17.210 Nicotine dependence, cigarettes, uncomplicated; Z87.19 Personal history of other diseases of the digestive system; Z88.5 Allergy status to narcotic agent; Z88.0 Allergy status to penicillin; V47.9XXA Unspecified car occupant injured in collision with fixed or stationary object in traffic accident, initial encounter
CPT/HCPCS: 70450; 72125

== ENCOUNTER → 2019-09-22 | Outpatient (CLI) | payer MEDICAID ==
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
== END ==
LOC: RAD 12:37
PROVIDERS: ATTEND Internal Medicine
DX: M51.36 Other intervertebral disc degeneration, lumbar region (principal); M48.061 Spinal stenosis, lumbar region without neurogenic claudication
CPT/HCPCS: 72148